=== PATIENT | female | born 1985 | race Two or more races ===

== ENCOUNTER 2017-02-22 09:33 | Emergency (ER) | payer MEDICAID ==
[~2017-02-22] VITALS: Ht 162.6 cm; Wt 64.0 kg
[2017-02-22 09:58] VITALS: BP 123/84
== END 2017-02-22 11:01 | disposition home or self-care (01) ==
LOC: ED 11:00
DX: S43.421A Sprain of right rotator cuff capsule, initial encounter (principal); G89.11 Acute pain due to trauma; W21.02XA Struck by soccer ball, initial encounter; Y93.66 Activity, soccer; Y92.89 Other specified places as the place of occurrence of the external cause; Y99.8 Other external cause status
CPT/HCPCS: 99284